=== PATIENT | female | born 1960 | race Caucasian/White ===

== ENCOUNTER 2020-03-26 17:32 | Observation (INO) | payer OTHER ==
[~2020-03-26] VITALS: Ht 160 cm; Wt 62.3 kg
[2020-03-26 18:07] LABS: BASOPHILS % (AUTO) 1 % (0-1); EOSINOPHILS % (AUTO) 1 % (1-7); LYMPHOCYTES % (AUTO) 17 % (22-44); MEAN CORPUSCULAR HGB CONC 33.1 g/dL (32.4-35.8); MEAN PLATELET VOLUME 9.8 fL (7.4-10.4); MONOCYTES % (AUTO) 9 % (2-9); NEUTROPHILS % (AUTO) 72 % (42-75); PLATELET COUNT 253 x10^3/uL (130-400); RED BLOOD COUNT 4.72 x10^6/uL (3.82-5.3); RED CELL DISTRIBUTION WIDTH 13.7 % (9.6-15.2)
[2020-03-26 18:12] LABS: ALANINE AMINOTRANSFERASE 20 U/L (12-78); ANION GAP 6 mmol/L (5-15); CALCIUM 9.2 mg/dL (8.5-10.1); CHLORIDE 101 mmol/L (98-107); CREATININE 0.87 mg/dL (0.55-1.02)
[2020-03-26 18:15] LABS: ALKALINE PHOSPHATASE 103 U/L (45-117); BILIRUBIN,TOTAL 0.9 mg/dL (0.2-1.0); TOTAL PROTEIN 8.9 g/dL (6.4-8.2)
[2020-03-26 18:24] LABS: MD NO
[2020-03-26 18:42] LABS: MICROSCOPIC AUTO
--- NOTE | 2020-03-26 20:54 | NUR ---
pt called to room from lobby
--- NOTE | 2020-03-26 21:00 | NUR ---
FIRST CONTACT WITH PT. PT HERE FOR CC OF RUQ ABD 5/10 PAIN FOR LAST 3 DAYS. [facility] AND RECOMENDED TO COME TO ED. PT HAS VOMITED X1. AT BEDSIDE
[2020-03-26] MEDS ORDERED: CEFTRIAXONE PMX 1GM/50ML 50 ML IV ONE (21:30)
[2020-03-26] MEDS ORDERED: SODIUM CHLORIDE 0.9% 1,000ML IVBOLUS ONE (21:30)
[2020-03-26] MEDS ORDERED: ONDANSETRON 2MG/ML, 2ML IVPush ONE (21:30)
[2020-03-26] MEDS ORDERED: ONDANSETRON 2MG/ML, 2ML IVPush PRN (21:30)
[2020-03-26] MEDS ORDERED: MORPHINE SULFATE 4 MG/ML, 1ML IVPush PRN (21:30)
[2020-03-26] MEDS ORDERED: SODIUM CHLORIDE 0.9% 1,000 ML IV ONE (21:30)
--- NOTE | 2020-03-26 21:47 | NUR ---
PT AND UPDATED ON POC. PT VERBALIZES UNDERSTANDING OF BEING NPO.
[2020-03-26] MEDS ORDERED: MORPHINE SULFATE 4 MG/ML, 1ML ONE ×2 (21:53→22:41)
[2020-03-26] MEDS ORDERED: ONDANSETRON 2MG/ML, 2ML ONE (21:53)
[2020-03-26] MEDS ORDERED: CEFTRIAXONE PMX 1GM/50ML 50 ML ONE (21:53)
[2020-03-26] MEDS: MORPHINE SULFATE 4 MG/ML, 1ML IVPush PRN ×2 (22:00→22:45)
--- NOTE | 2020-03-26 22:47 | NUR ---
REPORT GIVEN TO DALE BLUM
--- NOTE | 2020-03-26 22:48 | NUR ---
PRECEPTOR;MEDICATED FOR PAIN PER MAR
[2020-03-26 23:26] VITALS: BP 150/91
[2020-03-27] MEDS ORDERED: [UNRECOGNIZED DRUG - REMARK] PO (00:21)
[2020-03-27 01:09] VITALS: BP 148/73
[2020-03-27] MEDS ORDERED: BUPIVACAINE/PF 0.5% ONE (03:00)
[2020-03-27] MEDS ORDERED: EPINEPHRINE 1 MG/ML, 1ML ONE (03:01)
[2020-03-27] MEDS ORDERED: FENTANYL PF 100 MCG/2ML ONE ×2 (05:56→07:20)
[2020-03-27] MEDS ORDERED: OXYcodone 5 MG/5 ML ORAL.SOL UDC PO PRN (06:00)
[2020-03-27] MEDS ORDERED: DIPHENHYDRAMINE 50 MG/ML, 1ML IVPush PRN (06:00)
[2020-03-27] MEDS ORDERED: HYDROmorphone 1 MG/ML, 1ML INJ IVPush PRN (06:00)
[2020-03-27] MEDS ORDERED: MEPERIDINE/PF 25MG/0.5ML IVPush PRN (06:00)
[2020-03-27] MEDS ORDERED: hydrALAzine 20 MG/ML, 1ML IV PRN (06:00)
[2020-03-27] MEDS ORDERED: HALOPERIDOL 5 MG/ML IV PRN (06:00)
[2020-03-27] MEDS ORDERED: LABETALOL 5MG/ML, 20ML IV PRN (06:00)
[2020-03-27] MEDS ORDERED: PROMETHAZINE 25 MG/ML, 1ML IVPush PRN (06:00)
[2020-03-27] MEDS ORDERED: KETOROLAC 30 MG/1 ML ONE (06:48)
[2020-03-27] MEDS ORDERED: SUGAMMADEX 200 MG/2 ML IVPush ONE (06:48)
[2020-03-27] MEDS ORDERED: SUCCINYLCHOLINE 20 MG/ML, 10ML ONE (06:59)
[2020-03-27] MEDS ORDERED: NEOSTIGMINE 1 MG/ML, 10ML ONE (06:59)
[2020-03-27] MEDS ORDERED: DEXAMETHASONE 4 MG/ML, 1ML ONE (06:59)
[2020-03-27] MEDS ORDERED: GLYCOPYRROLATE 0.2MG/1ML, 5ML ONE (06:59)
[2020-03-27] MEDS ORDERED: ROCURONIUM 10MG/ML,5ML ONE (06:59)
[2020-03-27] MEDS ORDERED: PROPOFOL 10 MG/ML, 20ML ONE (06:59)
[2020-03-27] MEDS ORDERED: CEFAZOLIN 1,000 MG ONE (06:59)
[2020-03-27] MEDS ORDERED: ONDANSETRON 2MG/ML, 2ML ONE (06:59)
[2020-03-27] MEDS ORDERED: ACETAMINOPHEN 650 MG/20.3 ML UDC ONE (07:19)
[2020-03-27] MEDS ORDERED: OXYcodone 5 MG/5 ML ORAL.SOL UDC ONE (07:20)
[2020-03-27] MEDS: FENTANYL PF 100 MCG/2ML IV PRN ×4 (07:25→07:46)
[2020-03-27] MEDS ORDERED: ACETAMINOPHEN 650 MG/20.3 ML UDC PO PRN (07:30)
[2020-03-27] MEDS ORDERED: FLU VACC QS2020-21(6MOS UP)/PF 60MCG/0.5 ML SYR IM-VACC ONE (08:30)
[2020-03-27] MEDS ORDERED: OXYcodone IR 5MG TABLET PO PRN (09:30)
[2020-03-27] MEDS ORDERED: ACETAMINOPHEN 325 MG TABLET PO SCH (09:30)
[2020-03-27] MEDS ORDERED: SODIUM CHLORIDE 0.9% 1,000 ML IV SCH (09:30)
[2020-03-27] MEDS ORDERED: MORPHINE SULFATE 4 MG/ML, 1ML IVPush PRN (09:30)
[2020-03-27 14:00] VITALS: BP 145/74
[2020-03-27 15:24] VITALS: BP 127/83
[2020-03-27] MEDS ORDERED: ONDA4TAB7 PO (15:41)
[2020-03-27] MEDS ORDERED: OXYC5CAP2 PO (15:41)
[2020-03-27] MEDS ORDERED: ACET325T26 PO (15:43)
== END 2020-03-27 16:15 | disposition home or self-care (01) ==
LOC: ED 21:46 → INTOOBSV 22:25 → EDIP 22:25 → 4NE 23:10 → DCLOUNGE 03-27 16:09
PROVIDERS: ADMIT Surgery; ATTEND Surgery
DX: K80.00 Calculus of gallbladder with acute cholecystitis without obstruction (principal); Z20.828 Contact with and (suspected) exposure to other viral communicable diseases; K82.1 Hydrops of gallbladder; K66.0 Peritoneal adhesions (postprocedural) (postinfection); R11.2 Nausea with vomiting, unspecified; I10 Essential (primary) hypertension; Z87.891 Personal history of nicotine dependence; Z79.899 Other long term (current) drug therapy; Z23 Encounter for immunization
CPT/HCPCS: 36415; 47562; 76700; 80053; 81001; 83690; 85025; 87086; 87635; 88304; 90471; 90686; 96361; 96365; 96375; 96376; 99284; G0378; J0171; J0330; J0696; J1100; J1885; J2270; J2405; J2704; J3010; J7030; S0020; J0690; J2710